=== PATIENT | female | born 1990 | race Hispanic/Latino ===

== ENCOUNTER 2017-07-18 18:04 | Emergency (ER) | payer OTHER ==
[2017-07-18] MEDS ORDERED: ORPHENADRINE CITRATE 30 MG/ML ML ONE (18:52)
[2017-07-18] MEDS ORDERED: ONDANSETRON HCL MDV 20ML 2 MG/ML VIAL ONE (18:52)
[2017-07-18] MEDS ORDERED: KETOROLAC TROMETHAMINE 30MG/ML ONE (18:52)
== END 2017-07-18 19:56 | disposition home or self-care (01) ==
LOC: EDH 18:04
DX: S13.8XXA Sprain of joints and ligaments of other parts of neck, initial encounter (principal); G44.319 Acute post-traumatic headache, not intractable; V43.53XA Car driver injured in collision with pick-up truck in traffic accident, initial encounter; Y93.89 Activity, other specified; Y92.89 Other specified places as the place of occurrence of the external cause; Y99.8 Other external cause status
CPT/HCPCS: 81025; 96374; 96375; 99284; J1885; J2360

== ENCOUNTER → 2018-12-25 | Outpatient (CLI) | payer OTHER ==
[~2018-12-25] MED LIST: IOHEXOL-350 75 ML VIAL IV ONE
== END | disposition home or self-care (01) ==
LOC: RAH 10:16
PROVIDERS: ATTEND Nurse Practitioner Family
DX: R10.9 Unspecified abdominal pain (principal)
CPT/HCPCS: 74170; Q9967

== ENCOUNTER 2024-10-27 16:08 | Emergency (ER) | payer BC, OTHER ==
[~2024-10-27] VITALS: Ht 157.5 cm; Wt 61.2 kg
[2024-10-27 16:17] VITALS: BP 123/75; PULSE 80; RESP 18; TEMP 98.1; O2SAT 97
--- NOTE | 2024-10-27 16:27 | ERN ---
General Chief Complaint: Contusion/Bruising Stated Complaint: HEMATOMA Time Seen by MD: 16:10 Source: patient History of Present Illness Initial Comments Patient is a 34-year-old female coming in complaining of right calf bruise, per patient she was working out and noticed a swelling in the bruise on her right calf region. He is able to ambulate but with some discomfort. Allergies: Coded Allergies: No Known Drug Allergies (Unverified Allergy, Unknown, 10/27/24) Past Medical History Past Medical History: No Pertinent History Past Surgical History: Surgical History Other: ABD HERNIA REPAIR Female( History) LMP: Oct 24, 2024 ROS Dictation CONSTITUTIONAL: No chills, no fever, no weakness, no diaphoresis, no malaise. HEAD/FACE: No signs of trauma. EENT: No eye pain, no blurred vision, no tearing, no double vision, no ear pain, no ear discharge, no nose pain, no nasal congestion, no throat pain, no throat swelling, no mouth pain. RESPIRATORY: No cough, no orthopnea, no SOB, no stridor, no wheezing. CARDIOVASCULAR: No chest pain, no edema, no palpitations, no syncope. GASTROINTESTINAL/ABDOMINAL: No abdominal pain, no constipation, no diarrhea, no nausea, no vomiting. GENITOURINARY: No abnormal discharge, no dysuria, no frequent urination, no hematuria. No complaints of pain in the genitals. MUSCULOSKELETAL: No back pain, no gout, no joint pain, joint swelling, muscle pain, no muscle stiffness, no neck pain. INTEGUMENTARY: No change in color, no change in hair/nails, no dryness, no lesion, no lumps, no rash. NEUROLOGICAL/PSYCH: No anxiety, not depressed, no emotional problem, no headache, no numbness, no pre-existing deficit, no history of seizures, no tremors, no weakness. HEMATOLOGIC/LYMPHATIC: Not anemic, no history of blood clots, no apparent bleeding, no bruising, glands not swollen. All Systems Negative, Except as Noted. Physical Exam Physical Exam Dictation VITAL SIGNS: Reviewed. GENERAL APPEARANCE: Alert, oriented x3, no acute distress, obese. HEAD AND FACE: Non-traumatic. EYES: PERRL, pink conjunctivas, eyelid no trauma, anterior chamber clear. EARS: Pinnas intact and no signs of trauma or erythema. Ear canals clear and no discharge. TMs no erythema. NOSE: No discharge, no bleeding. OROPHARYNX: Mouth normal, teeth no caries, tongue pink. Pharynx clear, no erythema. Tonsils no exudates, no abscesses noted. Mucous membrane moist. NECK: Supple, non-tender, no thyromegaly, no masses, no JVD, no bruits. BREAST: Deferred. CHEST: No tenderness, no crepitus, no paradoxical movement, no retractions. LUNGS: Clear, well-ventilated, symmetric, no rales, no wheezing, no rhonchi, no stridor, good breath sounds bilaterally. HEART: Regular rate, regular rhythm, no murmur, no gallops. VASCULAR: No peripheral edema. ABDOMEN: Soft, positive bowel sounds, nondistended, no guarding, nontender, no rebound, no masses no hepatomegaly, no splenomegaly, no Odell's sign, no hernias. RECTAL: Deferred. GENITAL: Deferred. NEUROLOGICAL: Normal speech, gross motor function intact, gross sensory function intact. MUSCULOSKELETAL: Neck nontender, full range of motion, back nontender, full range of motion. EXTREMITIES: Nontender, full range of motion. SKIN: Color pink, dry, no turgor, no rash, no lacerations, no abrasions, no contusions. LYMPHATICS: Deferred. Results Laboratory and Microbiology Labs Reviewed?: Yes EKG/XRAY/US/CT/MRI Ultrasound Comment Ultrasound lower extremity-superficial vein thrombosis MDM MDM: Differential diagnosis: Superficial vein thrombosis, hematoma, Rationale: Tests considered and ordered secondary to shared decision making include: Previous outside records reviewed: Old ER visits. Risk of complication and/or morbidity or mortality of patient management: None Medications-Per medication reconciliation Need for hospitalization: Patient does not meet criteria for hospitalization. Need for emergency major/minor surgery: No Patient is a 34-year-old female coming in complaining of right lower extremity discomfort after exercising. Ultrasound disclose a superficial vein thrombosis with some stranding around it. Medication for symptomatic relief. I did advise her appropriate follow up with the PCP I also advised her Warm compresses. [id number] pain relievers (like aspirin or NSAIDs). Elevation of the affected limb. Compression stockings. ED Course Orders Procedure Category Date Status Time Us Soft Tissue Lower US 8/6/25 Taken Extremity 16:10 Vital Signs Date Time Temp Pulse Resp B/P (MAP) Pulse Ox O2 Delivery O2 Flow Rate FiO2 10/27/24 16:17 98.1 80 18 123/75 97 Room Air* 0 21 10/27/24 16:11 98.1 80 18 123/76 97 Room Air 0 DX & DISP Disposition: Discharge Departure Impression: Primary Impression: Superficial vein thrombosis Condition: Stable Scripts Aspirin (Aspirin) 81 Mg Tab.chew 1 TAB PO DAILY for 30 Days, #30 TAB 0 Refills Prov: MARIANO KING MD 10/27/24 Additional Instructions: FOLLOW-UP WITH PRIMARY CARE PROVIDER IN 1 TO 2 DAYS. TAKE MEDICATIONS DIRECTED HERE IN THE EMERGENCY ROOM. OKAY TO CONTINUE HOME MEDICATIONS UNLESS OTHERWISE DISCUSSED DURING YOUR VISIT IN THE EMERGENCY ROOM TODAY. RETURN TO YOUR NEAREST EMERGENCY ROOM IF SYMPTOMS WORSEN OR IF THERE IS NO IMPROVEMENT. CALL 911 IF YOU NEED IMMEDIATE ASSISTANCE. TAKE TYLENOL [id number] NEEDED AND IF NO CONTRAINDICATIONS ARE PRESENT. INCREASE ORAL HYDRATION. A WOUND CULTURE OR URINE CULTURE WAS ORDERED HERE IN THE EMERGENCY ROOM DEPARTMENT PLEASE FOLLOW-UP WITH PRIMARY CARE PROVIDER AND ADVISE THEM TO GET REPORTS FROM OUR FACILITY. IF YOU HAD ANY DEEJAY WRAP/SPLINTS THAT WERE APPLIED HERE, PLEASE DO NOT REMOVE THEM UNTIL YOU SEE YOUR PRIMARY CARE OR SPECIALTY. Referrals: Referrals: RYDER LLOYD (PCP) Time of Disposition: 16:55 MARIANO KING MD Oct 27, 2024 16:27
[2024-10-27] MEDS ORDERED: ASPI-1197 PO (16:55)
--- NOTE | 2024-10-27 17:27 | HMCIMG ---
Exam: Ultrasound limited right popliteal fossa. History: Right extremity pain and swelling. Technique: Static grayscale and color Doppler images were obtained. Findings: There is thrombus noted within a superficial small vein within the popliteal fossa posterior lateral. No fluid collection or other sonographic abnormality. IMPRESSION: 1. Small superficial venous thrombosis in the right lateral popliteal fossa. Thrombophlebitis. Recommend deep venous ultrasound exam of right lower extremity /Mckay
== END 2024-10-27 17:04 | disposition home or self-care (01) ==
LOC: EDH 16:08
DX: I82.811 Embolism and thrombosis of superficial veins of right lower extremity (principal); I82.431 Acute embolism and thrombosis of right popliteal vein; Z98.890 Other specified postprocedural states
CPT/HCPCS: 76882; 99284